=== PATIENT | female | born 1990 | race Caucasian/White ===

== ENCOUNTER 2017-11-19 12:14 | Emergency (ER) | payer SELFPAY ==
[~2017-11-19] VITALS: Ht 162.6 cm; Wt 63.6 kg
[2017-11-19 12:39] VITALS: BP 129/83
[2017-11-19 14:38] LABS: URINE HCG NEGATIVE (NEG)
[2017-11-19] MEDS ORDERED: MUPI22OI30 TOP (14:43)
[2017-11-19] MEDS ORDERED: BACDS PO (14:43)
[2017-11-19] MEDS ORDERED: TETanus/Pertussis (Acell)/Diphther VAC/PF (Tdap-Adult) 0.5ml syringe IMVAC ONE (14:45)
== END 2017-11-19 14:59 | disposition home or self-care (01) ==
LOC: ER 12:17
DX: L03.115 Cellulitis of right lower limb (principal); F17.210 Nicotine dependence, cigarettes, uncomplicated; Z79.899 Other long term (current) drug therapy; Z56.0 Unemployment, unspecified; Z60.2 Problems related to living alone
CPT/HCPCS: 81025; 90471; 90715; 99283